=== PATIENT | female | born 1945 | race Caucasian/White ===

== ENCOUNTER 2020-08-27 23:17 | Inpatient (IN) ==
[2020-08-28] MEDS ORDERED: Dextrose 50% Syringe 50 ml 25 GM/50 ML SYRINGE IV PUSH PRN (02:17)
[2020-08-28 03:43] LABS: ABS Monocytes 0.6 10^3/ul (0-0.8); ABS Neutrophils 4.2 10^3/ul (1.5-7.7); Hematocrit 40 % (35-47); Hemoglobin 13.3 g/dL (12.0-16.0); Lymphocyte % 17.5 %; Mean Corpuscular HGB Conc 33 g/dL (31-36); Mean Corpuscular Hemoglobin 29 pg (27-31); Mean Corpuscular Volume 87 fL (80-97); Platelet Count 200 10^3/uL (150-450); Red Blood Count 4.61 10^6 /uL (3.70-4.87); Red Cell Distribution Width 17 % (10-15); White Blood Count 5.9 10^3/uL (3.5-10.8)
[2020-08-28 04:00] LABS: Albumin 3.8 g/dL (3.2-5.2); Albumin/Globulin Ratio 1.2 (1-3); C Reactive Protein 22.3 mg/L (<8.01); Calcium 8.7 mg/dL (8.6-10.3); EGFR African American 62.9 (>60); Globulin 3.3 g/dL (2-4); Magnesium 2.1 mg/dL (1.9-2.7); Potassium 4.3 mmol/L (3.5-5.0); Total Bilirubin 0.6 mg/dL (0.2-1.0); Total Protein 7.1 g/dL (6.4-8.9)
[2020-08-28] MEDS ORDERED: Remdesivir 100 mg Vial 200 MG in NS 0.9% 250 ml 210 ML IV ONE (05:30)
[2020-08-28] MEDS ORDERED: Heparin 5000 UNITS/ML 1 mL VIAL SUBCUT SCH (06:00)
[2020-08-28 07:24] LABS: Urine Appearance Clear; Urine Bilirubin Negative (Negative); Urine Blood 1+ (Negative); Urine Color Yellow; Urine Glucose 3+(>=500 mg/dL) (Negative); Urine Ketones 1+ (Negative); Urine Nitrite Positive (Negative); Urine Protein Negative (Negative); Urine Specific Gravity 1.028 (1.010-1.030); Urine Urobilinogen Negative (Negative)
[2020-08-28 07:37] LABS: Urine Bacteria 1+ (Absent); Urine Red Blood Cell Trace(0-2/hpf) (Absent); Urine Squamous Epithelial Cell Present (Absent); Urine White Blood Cell Trace(0-5/hpf) (Absent)
[2020-08-28] MEDS: Calcium Carb (TUMS) 500 mg CHEW TAB PO SCH ×2 (09:06→16:34)
[2020-08-28] MEDS: Nystatin TOP POWDER 15 GM BTL TOPICAL SCH ×3 (09:08→23:23)
[2020-08-28] MEDS: cefTRIAXone 1 gm/50 mL NS BAG 1 GM/50 ML BAG IVPB SCH (22:05)
[2020-08-28] MEDS: Senna TAB 8.6 mg TAB PO SCH (23:12)
[2020-08-28] MEDS: Enoxaparin 60 MG/0.6 ML SYR SUBCUT SCH (23:13)
[2020-08-28] MEDS: Insulin GLARGINE 100 un/ml 10 ml VIAL SUBCUT SCH (23:13)
[2020-08-29 05:55] LABS: ABS Lymphocytes 1.1 10^3/ul (1.0-4.8); ABS Monocytes 0.8 10^3/ul (0-0.8); ABS Neutrophils 5.7 10^3/ul (1.5-7.7); Hematocrit 43 % (35-47); Hemoglobin 13.4 g/dL (12.0-16.0); Lymphocyte % 14.6 %; Mean Corpuscular HGB Conc 31 g/dL (31-36); Mean Corpuscular Hemoglobin 28 pg (27-31); Mean Corpuscular Volume 92 fL (80-97); Mean Platelet Volume 8.9 fL (7.4-10.4); Nucleated Red Blood Cells % 0.2; Platelet Count 180 10^3/uL (150-450); Red Cell Distribution Width 17 % (10-15); White Blood Count 7.7 10^3/uL (3.5-10.8)
[2020-08-29 06:04] LABS: Calcium 8.8 mg/dL (8.6-10.3); Potassium 4.9 mmol/L (3.5-5.0)
[2020-08-29 06:09] LABS: EGFR African American 78.5 (>60); EGFR Non-African American 64.9 (>60)
[2020-08-29] MEDS: Enoxaparin 60 MG/0.6 ML SYR SUBCUT SCH ×2 (08:32→22:29)
[2020-08-29] MEDS: Nystatin TOP POWDER 15 GM BTL TOPICAL SCH ×3 (08:40→22:25)
[2020-08-29] MEDS: Calcium Carb (TUMS) 500 mg CHEW TAB PO SCH ×2 (08:40→17:53)
[2020-08-29] MEDS ORDERED: Remdesivir 100 mg Vial 100 MG in NS 0.9% 250 ml 230 ML IV SCH (09:00)
[2020-08-29 13:24] LABS: TSH Ultra Thyroid Stim Horm 0.56 mcIU/mL (0.34-5.60)
[2020-08-29] MEDS ORDERED: Remdesivir 100 mg Vial 200 MG in NS 0.9% 250 ml 210 ML IV ONE (14:00)
[2020-08-29] MEDS: cefTRIAXone 1 gm/50 mL NS BAG 1 GM/50 ML BAG IVPB SCH (21:50)
[2020-08-29] MEDS: Senna TAB 8.6 mg TAB PO SCH (22:25)
[2020-08-29] MEDS: Insulin GLARGINE 100 un/ml 10 ml VIAL SUBCUT SCH (22:29)
[2020-08-30] MEDS: Calcium Carb (TUMS) 500 mg CHEW TAB PO SCH ×2 (10:57→17:16)
[2020-08-30] MEDS: Remdesivir 100 mg Vial 100 MG in NS 0.9% 250 ml 230 ML IV SCH (10:58)
[2020-08-30] MEDS: Nystatin TOP POWDER 15 GM BTL TOPICAL SCH ×3 (11:00→21:33)
[2020-08-30] MEDS: Enoxaparin 60 MG/0.6 ML SYR SUBCUT SCH ×2 (11:08→21:29)
[2020-08-30 12:18] LABS: Albumin 3.6 g/dL (3.2-5.2); BUN/Creatinine Ratio 40.5 (8-20); Calcium 8.9 mg/dL (8.6-10.3); EGFR African American 79.6 (>60); EGFR Non-African American 65.7 (>60); Globulin 3.5 g/dL (2-4); Potassium 4.1 mmol/L (3.5-5.0); Total Bilirubin 0.4 mg/dL (0.2-1.0); Total Protein 7.1 g/dL (6.4-8.9)
[2020-08-30] MEDS: cefTRIAXone 1 gm/50 mL NS BAG 1 GM/50 ML BAG IVPB SCH (21:28)
[2020-08-30] MEDS: Senna TAB 8.6 mg TAB PO SCH (21:29)
[2020-08-30] MEDS: Insulin GLARGINE 100 un/ml 10 ml VIAL SUBCUT SCH (21:29)
[2020-08-31] MEDS: Remdesivir 100 mg Vial 100 MG in NS 0.9% 250 ml 230 ML IV SCH (09:39)
[2020-08-31] MEDS: Enoxaparin 60 MG/0.6 ML SYR SUBCUT SCH ×2 (09:46→20:39)
[2020-08-31 11:12] LABS: ABS Lymphocytes 1.4 10^3/ul (1.0-4.8); ABS Monocytes 0.5 10^3/ul (0-0.8); ABS Neutrophils 2.1 10^3/ul (1.5-7.7); Eosinophil % 0.5 %; Hematocrit 40 % (35-47); Hemoglobin 13.1 g/dL (12.0-16.0); Lymphocyte % 34.3 %; Mean Corpuscular HGB Conc 33 g/dL (31-36); Mean Corpuscular Hemoglobin 28 pg (27-31); Mean Corpuscular Volume 86 fL (80-97); Mean Platelet Volume 8.9 fL (7.4-10.4); Nucleated Red Blood Cells % 0.2; Platelet Count 191 10^3/uL (150-450); Red Blood Count 4.69 10^6 /uL (3.70-4.87); Red Cell Distribution Width 17 % (10-15)
[2020-08-31 11:31] LABS: BUN/Creatinine Ratio 34.1 (8-20); Calcium 8.9 mg/dL (8.6-10.3); EGFR African American 78.5 (>60); EGFR Non-African American 64.9 (>60); Potassium 3.8 mmol/L (3.5-5.0)
[2020-08-31] MEDS: Calcium Carb (TUMS) 500 mg CHEW TAB PO SCH ×2 (13:59→17:41)
[2020-08-31] MEDS: Nystatin TOP POWDER 15 GM BTL TOPICAL SCH ×3 (14:01→21:24)
[2020-08-31] MEDS: Insulin GLARGINE 100 un/ml 10 ml VIAL SUBCUT SCH (20:38)
[2020-08-31] MEDS: cefTRIAXone 1 gm/50 mL NS BAG 1 GM/50 ML BAG IVPB SCH (20:44)
[2020-08-31] MEDS: Senna TAB 8.6 mg TAB PO SCH (20:45)
[2020-09-01] MEDS: Calcium Carb (TUMS) 500 mg CHEW TAB PO SCH ×2 (08:39→17:40)
[2020-09-01] MEDS: Nystatin TOP POWDER 15 GM BTL TOPICAL SCH ×3 (08:39→20:10)
[2020-09-01] MEDS: Enoxaparin 60 MG/0.6 ML SYR SUBCUT SCH ×2 (08:39→20:07)
[2020-09-01] MEDS: Remdesivir 100 mg Vial 100 MG in NS 0.9% 250 ml 230 ML IV SCH (08:39)
[2020-09-01] MEDS ORDERED: NFT: Dulaglutide (NF) 1.5 MG/0.5 ML SYRINGE SUBCUT SCH (09:00)
[2020-09-01] MEDS: Insulin GLARGINE 100 un/ml 10 ml VIAL SUBCUT SCH (20:08)
[2020-09-01] MEDS: cefTRIAXone 1 gm/50 mL NS BAG 1 GM/50 ML BAG IVPB SCH (20:08)
[2020-09-01] MEDS: Senna TAB 8.6 mg TAB PO SCH ×2 (20:08→20:10)
[2020-09-02] MEDS: Remdesivir 100 mg Vial 100 MG in NS 0.9% 250 ml 230 ML IV SCH (08:58)
[2020-09-02] MEDS: Calcium Carb (TUMS) 500 mg CHEW TAB PO SCH ×2 (08:59→17:41)
[2020-09-02] MEDS: Nystatin TOP POWDER 15 GM BTL TOPICAL SCH ×3 (08:59→21:05)
[2020-09-02] MEDS: Enoxaparin 60 MG/0.6 ML SYR SUBCUT SCH ×2 (09:00→21:02)
[2020-09-02] MEDS: Insulin GLARGINE 100 un/ml 10 ml VIAL SUBCUT SCH (21:04)
[2020-09-02] MEDS: Senna TAB 8.6 mg TAB PO SCH (21:04)
[2020-09-03] MEDS: Calcium Carb (TUMS) 500 mg CHEW TAB PO SCH ×2 (09:08→16:47)
[2020-09-03] MEDS: Enoxaparin 60 MG/0.6 ML SYR SUBCUT SCH ×2 (09:09→22:22)
[2020-09-03] MEDS: Nystatin TOP POWDER 15 GM BTL TOPICAL SCH ×3 (09:10→22:24)
[2020-09-03] MEDS: Senna TAB 8.6 mg TAB PO PRN (22:22)
[2020-09-03] MEDS: Insulin GLARGINE 100 un/ml 10 ml VIAL SUBCUT SCH (22:23)
[2020-09-04] MEDS: Nystatin TOP POWDER 15 GM BTL TOPICAL SCH ×3 (08:50→21:16)
[2020-09-04] MEDS: Enoxaparin 60 MG/0.6 ML SYR SUBCUT SCH ×2 (08:51→21:17)
[2020-09-04] MEDS: Calcium Carb (TUMS) 500 mg CHEW TAB PO SCH ×2 (08:51→17:29)
[2020-09-04] MEDS ORDERED: Dextrose 50% Syringe 50 ml 25 GM/50 ML SYRINGE IV PUSH PRN (11:37)
[2020-09-04] MEDS: Senna TAB 8.6 mg TAB PO PRN ×2 (12:24→21:16)
[2020-09-04] MEDS: Insulin GLARGINE 100 un/ml 10 ml VIAL SUBCUT SCH (21:17)
[2020-09-05] MEDS: Enoxaparin 60 MG/0.6 ML SYR SUBCUT SCH ×2 (08:20→21:17)
[2020-09-05] MEDS: Calcium Carb (TUMS) 500 mg CHEW TAB PO SCH ×2 (08:20→18:22)
[2020-09-05] MEDS: Nystatin TOP POWDER 15 GM BTL TOPICAL SCH ×3 (08:21→21:17)
[2020-09-05 12:59] LABS: Glucose Confirmatory 449 mg/dL (70-100)
[2020-09-05 17:56] LABS: Glucose Confirmatory 456 mg/dL (70-100)
[2020-09-05] MEDS ORDERED: Insulin GLARGINE 100 un/ml 10 ml VIAL SUBCUT SCH (21:00)
[2020-09-06] MEDS ORDERED: Enoxaparin 40 MG/0.4 ML SYR SUBCUT SCH (09:00)
[2020-09-06] MEDS: Calcium Carb (TUMS) 500 mg CHEW TAB PO SCH (09:55)
[2020-09-06] MEDS: Nystatin TOP POWDER 15 GM BTL TOPICAL SCH (10:08)
[2020-09-06 10:19] VITALS: BP 119/60
== END 2020-09-06 10:00 | DRG 177 ==
LOC: ED 23:17 → MED 23:17
PROVIDERS: ADMIT Internal Medicine Interventional Cardiology; ATTEND Pediatrics